=== PATIENT | male | born 1970 | race Caucasian/White ===

== ENCOUNTER 2021-06-14 11:11 | Emergency (ER) | payer OTHER ==
[~2021-06-14] VITALS: Ht 152.4 cm; Wt 71.2 kg
== END 2021-06-14 12:48 | disposition home or self-care (01) ==
LOC: ER 11:11
DX: R55 Syncope and collapse (principal)

== ENCOUNTER 2021-09-25 12:52 | Emergency (ER) | payer OTHER ==
[~2021-09-25] VITALS: Ht 162.6 cm; Wt 68.0 kg
== END 2021-09-25 16:25 | disposition home or self-care (01) ==
LOC: ER 12:52
DX: L55.1 Sunburn of second degree (principal)

== ENCOUNTER → 2022-04-28 | Emergency (ER) | payer OTHER ==
[~2022-04-28] VITALS: Ht 162.6 cm; Wt 70.8 kg
== END | disposition home or self-care (01) ==
LOC: ER 16:04
DX: M54.9 Dorsalgia, unspecified (principal)

== ENCOUNTER 2022-04-29 14:02 | Emergency (ER) | payer OTHER ==
[~2022-04-29] VITALS: Ht 162.6 cm; Wt 71.2 kg
== END 2022-04-30 02:55 | disposition home or self-care (01) ==
LOC: ER 14:02
DX: M51.26 Other intervertebral disc displacement, lumbar region (principal)

== ENCOUNTER 2022-04-30 09:09 | Emergency (ER) | payer OTHER ==
[~2022-04-30] VITALS: Ht 162.6 cm; Wt 71.2 kg
== END 2022-04-30 16:31 | disposition left against medical advice (07) ==
LOC: ER 09:09
DX: R51.9 Headache, unspecified (principal); Z59.00 Homelessness unspecified